=== PATIENT | female | born 1955 | race African-American/Black ===

== ENCOUNTER 2017-10-16 06:15 | Day surgery (SDC) | payer BC ==
[~2017-10-16] VITALS: Ht 167.6 cm; Wt 97.5 kg
[2017-10-16] MEDS ORDERED: SEVOFLURANE 15 MIN GAS INH ONE (08:30)
[2017-10-16] MEDS ORDERED: LR 1,000 ML IV.SOLN IV ONE (08:30)
[2017-10-16] MEDS ORDERED: KETOROLAC TROMETHAMINE 30 MG VIAL IVP ONE (08:30)
[2017-10-16] MEDS ORDERED: ONDANSETRON HCL 4 MG/2 ML VIAL IVP ONE (08:30)
[2017-10-16] MEDS ORDERED: MIDAZOLAM HCL 5 MG/5 ML VIAL IVP ONE (08:30)
[2017-10-16] MEDS ORDERED: ONDANSETRON HCL 4 MG/2 ML VIAL IVP PRN ×2 (08:30→09:30)
[2017-10-16] MEDS ORDERED: PROPOFOL 200MG/ 20ML VIAL (DIPRIVAN) IV ONE (08:30)
[2017-10-16] MEDS ORDERED: NS 1000 ML BAG IV ONE (08:30)
[2017-10-16] MEDS ORDERED: fentaNYL CITRATE/PF 100 MCG/2 ML AMP IVP ONE (08:30)
[2017-10-16] MEDS ORDERED: fentaNYL CITRATE/PF 100 MCG/2 ML AMP IVP PRN ×2 (08:30)
[2017-10-16] MEDS ORDERED: PROMETHAZINE HCL 25 MG/ML AMP IM PRN (09:30)
[2017-10-16] MEDS ORDERED: OXYCODONE/ACETAMINOPHEN 5-325 TABLET PO PRN (09:30)
[2017-10-16 10:26] VITALS: BP_SYST 129
== END 2017-10-16 10:55 | disposition home or self-care (01) ==
LOC: SMU 06:15 → SDS 06:15
PROVIDERS: ATTEND Obstetrics & Gynecology
DX: N84.0 Polyp of corpus uteri (principal); M54.5 Low back pain; M79.7 Fibromyalgia; K21.9 Gastro-esophageal reflux disease without esophagitis; G43.909 Migraine, unspecified, not intractable, without status migrainosus; I10 Essential (primary) hypertension; Z98.890 Other specified postprocedural states; Z79.899 Other long term (current) drug therapy; Z80.3 Family history of malignant neoplasm of breast; Z80.41 Family history of malignant neoplasm of ovary; Z88.8 Allergy status to other drugs, medicaments and biological substances; E66.3 Overweight; J45.909 Unspecified asthma, uncomplicated
CPT/HCPCS: 36415; 58558; 86886; 86900; 86901; 88305; C1819; J1885; J2250; J2405; J2704; J3010; J7030; J7120

== ENCOUNTER 2017-12-17 05:40 | Day surgery (SDC) | payer BC ==
[~2017-12-17] VITALS: Ht 167.6 cm; Wt 96.2 kg
[2017-12-17] MEDS ORDERED: KETOROLAC TROMETHAMINE 30 MG VIAL IVP PRN (08:15)
[2017-12-17] MEDS ORDERED: ONDANSETRON HCL 4 MG/2 ML VIAL IVP PRN ×2 (08:15→11:15)
[2017-12-17] MEDS ORDERED: fentaNYL CITRATE/PF 100 MCG/2 ML AMP IVP PRN ×2 (08:15)
[2017-12-17] MEDS ORDERED: MEPERIDINE HCL/PF 25 MG/ML DISP.SYRIN ONE (10:10)
[2017-12-17] MEDS ORDERED: LIDOCAINE 2%, 20 ML MDV ONE (10:10)
[2017-12-17] MEDS ORDERED: LR 1,000 ML IV.SOLN IV ONE (10:10)
[2017-12-17] MEDS ORDERED: MIDAZOLAM HCL 5 MG/ML VIAL (VERSED) IV ONE (10:10)
[2017-12-17] MEDS ORDERED: ROCURONIUM BROMIDE 10 MG/ML (ZEMURON) ONE (10:10)
[2017-12-17] MEDS ORDERED: KETOROLAC TROMETHAMINE 30 MG VIAL ONE ×2 (10:10→10:59)
[2017-12-17] MEDS ORDERED: BUPIVACAINE /PF 0.5% 30 ML VIAL ONE (10:10)
[2017-12-17] MEDS ORDERED: ONDANSETRON HCL 4 MG/2 ML VIAL ONE ×2 (10:10→11:02)
[2017-12-17] MEDS ORDERED: CEFAZOLIN 2 GM IVPB PREMIX 50 ML IV ONE (10:10)
[2017-12-17] MEDS ORDERED: SEVOFLURANE 15 MIN GAS INH ONE (10:10)
[2017-12-17] MEDS ORDERED: PROPOFOL 200MG/ 20ML VIAL (DIPRIVAN) IV ONE (10:10)
[2017-12-17] MEDS ORDERED: fentaNYL CITRATE/PF 100 MCG/2 ML AMP ONE (10:25)
[2017-12-17] MEDS ORDERED: PROMETHAZINE HCL 25 MG/ML AMP IM PRN (11:15)
[2017-12-17] MEDS: OXYCODONE/ACETAMINOPHEN 5-325 TABLET PO PRN ×3 (12:00→22:11)
[2017-12-17] MEDS ORDERED: OXYCODONE/ACETAMINOPHEN 5-325 TABLET ONE (12:05)
[2017-12-17] MEDS ORDERED: IBUPROFEN 600 MG TABLET PO SCH (12:15)
[2017-12-17 13:35] VITALS: BP_SYST 146
--- NOTE | 2017-12-17 13:35 | NUR ---
Opening Note patient transported to room via stretcher, report given by Katie, oriented patient to room, visitor at bedside, will perform admission assessment
[2017-12-17 13:39] VITALS: BP_SYST 138
[2017-12-17] MEDS ORDERED: LOSA100T11 PO (14:54)
[2017-12-17] MEDS ORDERED: DILT240C91 PO (14:55)
[2017-12-17] MEDS ORDERED: NOR10 PO (14:56)
[2017-12-17] MEDS ORDERED: RANI300T4 PO (14:58)
[2017-12-17] MEDS ORDERED: PRO40 PO (14:58)
[2017-12-17] MEDS ORDERED: HYDR-2472 PO (15:11)
[2017-12-17] MEDS ORDERED: WELSR150 PO (15:11)
[2017-12-17] MEDS ORDERED: CYCL-365 PO (15:11)
[2017-12-17] MEDS ORDERED: [UNRECOGNIZED DRUG - CODE] PO (15:11)
[2017-12-17] MEDS ORDERED: CETI1TAB2 PO (15:11)
[2017-12-17] MEDS ORDERED: PARO12.520 PO (15:11)
[2017-12-17] MEDS ORDERED: LORA-259 PO (15:11)
[2017-12-17] MEDS ORDERED: VILA20TA PO (15:11)
[2017-12-17] MEDS ORDERED: FLO110 INH (15:11)
[2017-12-17] MEDS ORDERED: QUET50TA13 PO (15:11)
[2017-12-17] MEDS ORDERED: HYDR-4100 PO (15:11)
--- NOTE | 2017-12-17 15:49 | NUR ---
Patient Ambulated to Restroom steady gait, no complaints of pain, breathing unlabored on room air, IV site saline locked at this time, educated patient on use of call light for assistance, verbalized understanding, call light and bedside table within reach, will continue to monitor
--- NOTE | 2017-12-17 16:48 | NUR ---
Family At Bedside at this time, informed patient that I paged MD for throat lozenges and to reconcile home medications, and to inform him about patient's pain, verbalized understanding, safety precautions remain in place, educated patient on use of call light for assistance, verbalized understanding, call light and bedside table within reach, will continue to monitor
--- NOTE | 2017-12-17 17:11 | NUR ---
Spoke with Dr. Mendoza regarding patient's sore throat, ordered cepacol throat lozenges, informed MD patient's pain get to 8/10 on abdomen, MD stated wanted to keep patient on Ibuprofen Q6Hr for pain and percocet Q4hr for pain, MD stated to continue medications from home for patient as well, will implement MD orders
[2017-12-17] MEDS ORDERED: PHENOL/MENTHOL 14.5 MG LOZENGE MM PRN (17:15)
[2017-12-17] MEDS ORDERED: MENTHOL MM PRN (18:00)
[2017-12-17] MEDS ORDERED: BENZOCAINE MM PRN (18:00)
--- NOTE | 2017-12-17 19:29 | NUR ---
Closing Note Patient resting in bed, awake and alert, complaining of pain 6/10 on abdomen, administered motrin per pain scale, also provided throat lozenge, incision sites clean dry and in tact, patient ambulates with steady gait, safety precautions in place, call light and bedside table within reach, will endorse to drying and winding supervisor nurse
[2017-12-17 20:00] VITALS: BP_SYST 140
--- NOTE | 2017-12-17 20:00 | NUR ---
INITIAL NOTES: PT IS ALERT AND ORIENTED , NOT IN ANY ACUTE DISTRESS; PAIN IS TOLERABLE STATED SHE RECEIVED PAIN MEDICATION ; PT STATED SHE DIDN'T PASS GAS YET; ENCOURAGED PT TO WALK AND DEEP BREATHING EXERCISE. ASSESSMENT DONE ; NOTICED 4 BANDAGES TO LOWER ABDOMEN , CLEAN DRY AND INTACT . VITALS ARE STABLE ; WILL CONTINUE TO MONITOR.
[2017-12-17] MEDS ORDERED: amLODIPine BESYLATE 10 MG TABLET PO SCH (21:00)
--- NOTE | 2017-12-17 22:15 | NUR ---
MEDICATION: DUE MEDS GIVEN , PT C/O PAIN MEDICATED WITH PERCOCET PER ORDER . WILL CONTINUE TO MONITOR.
--- NOTE | 2017-12-17 23:30 | NUR ---
WALKING: PT C/O GAS PAIN , ENCOURAGED PT TO WALK,ASSISTED TO WALK ON THE HALLWAY.ASSISTED PT BACK . PT VOIDED WELL
--- NOTE | 2017-12-17 23:50 | NUR ---
MD ORDER: DR WONG CALLED , INFORMED MD THAT PT C/O GAS PAIN , HEART BURN AND UNABLE TO PASS GAS AND CONSTIPATED ; MD ORDERED TO GIVE PROTONIX 40 PO X 1 DOSE ,SIMETHICONE 80 MG PO X 1, DULCOLAX 10 MG PO X1 ; ALSO MD ORDERED TO DC THE IV ACCESS. STATED OK TO DC PT IN AM , NO NEED TO WAIT FOR HIS ROUNDS .
[2017-12-18] VITALS: BP_SYST 157
--- NOTE | 2017-12-18 00:18 | NUR ---
MEDICATION: PER NEW ORDER PROTONIX , SIMETHICONE ,AND DULCOLAX GIVEN TO PT . ENCOURAGED PT TO WALK . Addendum: 12/18/17 at [address] RN IV ACCESS REMOVED PER DOCTOR ORDER , CATH TIP IS INTACT , BANDAGE APPLIED , NO ACTIVE BLEEDING NOTED ..
[2017-12-18] MEDS ORDERED: BISACODYL 5 MG TABLET.DR (DULCOLAX) PO SCH (00:30)
[2017-12-18] MEDS ORDERED: SIMETHICONE 80 MG TAB.CHEW PO SCH (00:30)
[2017-12-18] MEDS ORDERED: PANTOPRAZOLE SODIUM 40 MG TAB PO SCH ×2 (00:30→10:00)
[2017-12-18 00:41] VITALS: BP_SYST 152
--- NOTE | 2017-12-18 02:00 | NUR ---
RN ROUNDS: PT IS SLEEPING , NOT IN ANY ACUTE DISTRESS; WILL CONTINUE TO MONITOR.
--- NOTE | 2017-12-18 04:00 | NUR ---
RN NOTES: PT IS SLEEPING , NOT IN ANY ACUTE DISTRESS; EASILY AROUSABLE ;PT STATED SHE PASSED GAS ; NO BM YET . WILL CONTINUE TO MONITOR PT
[2017-12-18] MEDS: OXYCODONE/ACETAMINOPHEN 5-325 TABLET PO PRN (04:52)
--- NOTE | 2017-12-18 06:08 | NUR ---
RN NOTES: PT IS AWAKE , WALKING ON THE HALLWAY , NOT IN ANY ACUTE DISTRESS; WILL CONTINUE TO MONITOR.
--- NOTE | 2017-12-18 06:44 | NUR ---
I.S: NOTICED THAT BILLING AND INSURANCE COORDINATOR PUT ORDER FOR I.S , BUT WAS NOT GIVEN BY RT , PER ORDER , I.S GIVEN , EXPLAINED TO THE PT HOW TO USE IT . PT ABLE TO DEMONSTRATE WELL. PT IS COMFORTABLE . WILL CONTINUE TO MONITOR.
--- NOTE | 2017-12-18 07:10 | NUR ---
Opening Note Patient resting in bed, awake and alert, breathing unlabored on room air, no complaints of pain at this time, educated patient on use of call light for assistance, verbalized understanding, safety precautions in place, bedside table and call light within reach, will be back to check on patient
--- NOTE | 2017-12-18 07:15 | NUR ---
CLOSING NOTES: REPORT GIVEN TO RN AT BEDSIDE , ALL NEEDS MET , PT IS COMFORTABLE.
[2017-12-18 07:33] VITALS: BP_SYST 154
--- NOTE | 2017-12-18 08:50 | NUR ---
Incentive Spirometer patient educated on use of IS, verbalized understanding, was able to reach up to 1500 mL, patient was able to ambulate with steady gait around the unit, no complaints of pain at this time, no other needs at this time, call light and bedside table within reach, will continue to monitor patient
[2017-12-18] MEDS ORDERED: buPROPion HCL 150 MG XL TAB PO SCH (09:00)
[2017-12-18] MEDS ORDERED: LOSARTAN POTASSIUM 50 MG TABLET (COZAAR) PO SCH (09:00)
--- NOTE | 2017-12-18 09:15 | NUR ---
Medication Administration patient refused medication at this time, stated she will be able to take it when she gets home, educated patient on potential side effects from not taking medication, verbalized understanding, educated patient on use of call light for assistance, verbalized understanding, call light and bedside table within reach, will continue to monitor patient
[2017-12-18 09:16] VITALS: BP_SYST 154
--- NOTE | 2017-12-18 10:15 | NUR ---
D/C Patient Patient given medication reconciliation form and D/C instructions. Exit Care provided. Patient verbalized understanding. MD discussed with patient the results and treatment provided. Ambulatory with steady gait for discharge to home. Patient in stable condition, ID band removed. Patient educated on pain management. All belongings sent with patient.
[2017-12-18] MEDS ORDERED: DILTIAZEM HCL 240 MG CAP.SR.24H PO SCH (17:00)
== END 2017-12-18 10:15 | disposition home or self-care (01) ==
LOC: SMU 05:40 → SDS 05:40 → SMU 19:30 → SDS 12-18 10:15
PROVIDERS: ATTEND Obstetrics & Gynecology
DX: D25.9 Leiomyoma of uterus, unspecified (principal); K21.9 Gastro-esophageal reflux disease without esophagitis; I10 Essential (primary) hypertension; M79.7 Fibromyalgia; G89.29 Other chronic pain; G43.909 Migraine, unspecified, not intractable, without status migrainosus; Z98.890 Other specified postprocedural states; Z79.899 Other long term (current) drug therapy; Z88.8 Allergy status to other drugs, medicaments and biological substances; J45.909 Unspecified asthma, uncomplicated; E66.9 Obesity, unspecified
CPT/HCPCS: 36415; 58571; 86886; 86900; 86901; 88307; C1727; J0690; J1885; J2001; J2175; J2250; J2405; J2704; J3010; J3490; J7120; E0190